=== PATIENT | male | born 1945 | race Asian ===

== ENCOUNTER 2022-07-04 09:28 | Emergency (ER) | payer OTHER ==
[~2022-07-04] VITALS: Ht 170.2 cm; Wt 53.5 kg
[2022-07-04 09:47] VITALS: BP_SYST 149
--- NOTE | 2022-07-04 09:50 | NUR ---
Patient to ER bed 2 to gown for evaluation. Side rails up. Report given to Blanco THOMPSON.
[2022-07-04] MEDS ORDERED: GABAPENTIN 100 MG CAPSULE PO ONE (10:00)
[2022-07-04] MEDS ORDERED: KETOROLAC TROMETHAMINE 60 MG/2 ML VIAL IM ONE (10:00)
--- NOTE | 2022-07-04 10:00 | NUR ---
PATIENT AMBULATORY TO ER , PLACE IN ROOM 2, AAOX4 ACCOMPANIED WITH RELATIVE, C/O RIGHT LEG PAIN, ASSOCIATED WITH HX OF DM, EDP SEEN PATIENT WITH ORDER RANDA OUT. PATIENT ABLE TO MOVE ALKL EXTREMITIES, WILL CONTINUE TO MONITOR.
[2022-07-04 10:51] LABS: BASOPHILS # (AUTO) 0.1 K/uL (0.0-0.2); BASOPHILS % (AUTO) 1.2 % (0.0-2.0); EOSINOPHILS # (AUTO) 0.2 K/uL (0.0-0.4); EOSINOPHILS % (AUTO) 3.7 % (0.0-4.0); HEMATOCRIT 37.8 % (36-54); LYMPHOCYTES # (AUTO) 1.6 K/uL (1.0-5.5); LYMPHOCYTES % (AUTO) 28.2 % (20.5-51.5); MEAN CORPUSCULAR VOLUME 89 fL (79.0-98.0); MONOCYTES # (AUTO) 0.3 K/uL (0.0-1.0); NEUTROPHILS # (AUTO) 3.5 K/uL (1.8-7.7); NEUTROPHILS % (AUTO) 61.9 % (40.0-70.0); RED BLOOD CELL COUNT(AUTO) 4.23 MIL/uL (4.2-6.2); RED CELL DISTRIBUTION WIDTH 14.2 % (9.0-15.0); WHITE BLOOD COUNT (AUTO) 5.7 K/uL (4.8-10.8)
[2022-07-04 10:55] LABS: PLATELET COUNT (AUTO) 834 K/uL (130-430)
[2022-07-04 11:05] LABS: CHLORIDE 98 mmol/L (98-107); SODIUM SERUM 135 mmol/L (136-145)
[2022-07-04 11:06] LABS: ALANINE AMINOTRANSFERASE 28 U/L (12-78); ALBUMIN 4.1 g/dL (3.4-4.8); ANION GAP 11 (5-15); ASPARTATE AMINOTRANSFERASE 19 U/L (10-37); C-REACTIVE PROTEIN QUANT < 0.2 mg/dL (0-0.5); CALCIUM 9.3 mg/dL (8.4-11.0); CREATININE 1.84 mg/dL (0.55-1.30); GLUCOSE 278 mg/dL (70-99); TOTAL BILIRUBIN 0.5 mg/dL (0.0-1.0); UREA NITROGEN, BLOOD 31 mg/dL (8-21); URIC ACID 6.7 mg/dL (2.4-7.0)
[2022-07-04] MEDS ORDERED: GABA-529 PO (11:35)
--- NOTE | 2022-07-04 11:55 | NUR ---
PT TAKEN TO ULTRASOUNDS
--- NOTE | 2022-07-04 12:28 | NUR ---
PATIENT BACK FROM U/S PLACE IN BED, SON AT BEDSIDE, WILL CONTINUE TO MONITOR.
[2022-07-04 12:30] LABS: ERYTHROCYTE SEDIMENTATION RATE 18 MM/HR (0-15)
--- NOTE | 2022-07-04 13:01 | NUR ---
NOTIFIED ED ADMITTING REGARDING DR. DAIGLE'S REQUEST FOR ADMISSION/TRANSFER. PER DR. DAIGLE, PT IS STABLE FOR TRANSFER. WILL CONTACT CLASSIFYING MACHINE OPERATOR REGARDING THIS MATTER. PER FACESHEET: FileThis [facility]
--- NOTE | 2022-07-04 14:00 | NUR ---
ALL RESULT BACK, EDP REASSESS PATIENT FOR DISPOSITION.
--- NOTE | 2022-07-04 14:24 | NUR ---
H&P FAXED TO [employer] [phone]
[2022-07-04 14:43] VITALS: BP_SYST 106
--- NOTE | 2022-07-04 14:45 | NUR ---
Patient given written and verbal discharge instructions and verbalizes understanding. ER MD discussed with patient the results and treatment provided. Patient in stable condition. ID arm band removed. IV catheter removed intact and dressing applied, no active bleeding. Rx of GABAPENTIN given. Patient educated on pain management and to follow up with PMD. Pain Scale . Opportunity for questions provided and answered. Medication side effect fact sheet provided. DISCHARGE HOME WITH SON, AMBULATORY WITH [facility]E
== END 2022-07-04 14:43 | disposition home or self-care (01) ==
LOC: SED 09:28
DX: I73.9 Peripheral vascular disease, unspecified (principal); M79.661 Pain in right lower leg; Z79.899 Other long term (current) drug therapy
CPT/HCPCS: 99284; 80053; 84550; 85025; 85651; 86140; 36415; 93922; 96372; J1885